=== PATIENT | female | born 2000 | race Caucasian/White ===

== ENCOUNTER 2022-01-25 16:23 | Outpatient (CLI) | payer BC, SELFPAY | END 2022-01-25 16:24 | disposition home or self-care (01) | LOC: LKVREF 01-30 13:39 | PROVIDERS: PCP Family Medicine; Visit Provider Nurse Practitioner Family | DX: R30.0 Dysuria (principal); N39.0 Urinary tract infection, site not specified | CPT/HCPCS: 87086; 87186 ==